=== PATIENT | female | born 1995 | race Caucasian/White ===

== ENCOUNTER 2021-08-24 16:50 | Emergency (ER) | payer OTHER ==
[~2021-08-24 16:50] MED LIST: ASPIRIN EC81 MG PO; BENTYL10 MG PO; PREDNISONE 20MG20 MG PO; VENTOLIN HFA18 GM INH; ZOFRAN4 MG SL
== END 2021-08-24 19:36 | disposition home or self-care (01) ==
LOC: FER 16:50
DX: S61.512A Laceration without foreign body of left wrist, initial encounter (principal); Z23 Encounter for immunization; Z87.891 Personal history of nicotine dependence; W26.0XXA Contact with knife, initial encounter; Y92.009 Unspecified place in unspecified non-institutional (private) residence as the place of occurrence of the external cause
CPT/HCPCS: 73110; 90471; 90715

== ENCOUNTER 2022-04-13 21:05 | Emergency (ER) | payer OTHER ==
[2022-04-13] MEDS ORDERED: BACTRIM DS TAB1 EACH PO (22:10)
[2022-04-13] MEDS ORDERED: CEPHALEXIN500 MG PO (22:10)
== END 2022-04-13 22:17 | disposition home or self-care (01) ==
LOC: FER 21:05
DX: S71.152A Open bite, left thigh, initial encounter (principal); L03.116 Cellulitis of left lower limb; W57.XXXA Bitten or stung by nonvenomous insect and other nonvenomous arthropods, initial encounter
CPT/HCPCS: 99282